=== PATIENT | female | born 2000 | race Caucasian/White ===

== ENCOUNTER → 2022-03-08 | Outpatient (CLI) | payer BC ==
--- NOTE | 2022-03-08 14:02 | Diagnostic Imaging Report ---
INDICATION: anatomy survey. TECHNIQUE: Multiple real-time grayscale images were obtained over the gravid uterus. COMPARISON: None. FINDINGS: The cervix measures 4 cm in length. Single live intrauterine is in cephalic presentation. Placenta is posteriorly positioned, and there is no previa. SHARON is normal at 16.23 cm. The following anatomic structures are visualized and normal: Kidneys, lips/nose, profile, cerebellum, cisterna magna, cerebral ventricles, left ventricular outflow tract, right ventricular outflow tract, four-chamber heart, urinary bladder, and three-vessel cord. There is question of defect in the anterior abdominal wall with bowel herniated into the peritoneal amniotic cavity suggestive of gastroschisis versus omphalocele. Questionable defect in the lower lumbosacral region of the spine that could be due to sacral dysraphism/spina bifida. Biometrical measurements are as follows: Biparietal 5.11 cm, age 21 weeks 4 days. Head circumference 18.21 cm, age 20 weeks 5 days. Abdominal circumference 15.53 cm, age 20 weeks 5 days. Femur length 3.33 cm, age 20 weeks 3 days. Sonographic estimate age: 20 weeks 6 days. Sonographic estimated date of delivery: 07/20/2022. Estimated Weight: 365 gm (+/- 54 gm). LMP percentile: 72%. heart rate: 138 beats per minute. number: 1 of 1. IMPRESSION: 1. Abnormal anatomy survey with either gastroschisis versus omphalocele. 2. There is also potential lumbosacral dysraphism. Dictated by: Dictated on workstation # [id number]
== END ==
LOC: RAD FS 07:59
PROVIDERS: ATTEND Obstetrics & Gynecology
DX: Z34.02 Encounter for supervision of normal first pregnancy, second trimester (principal); Z3A.20 20 weeks gestation of pregnancy
CPT/HCPCS: 76805